=== PATIENT | male | born 1960 | race Caucasian/White ===

== ENCOUNTER 2017-06-28 11:39 | Day surgery (SDC) | payer OTHER ==
[~2017-06-28] VITALS: Ht 182.9 cm; Wt 123.5 kg
[~2017-06-28 11:39] MED LIST: AMPDEX10 PO; ARIP10 PO; ASCO500 PO; ASPI81CH PO; ASPI81EC PO; Amphetamine Sal30 MG PO; Ativan1 MG PO; CEPH500 PO; CLON.5 PO; CLON1 PO; Calcium 600 +1 EAC1 PO; DULO60; FENO160 PO; FENO48 PO; FETZIMA120 MG PO; FLUV50; FURO20 PO; FURO40 PO; GABA300 PO; HYDCHL25 PO; HYDR1TAB94 PO; IBUP800 PO; KETO30I; LAMO100 PO; LAMO5; LATUDA60 MG PO; LOSA50; LOSARTAN-HCTZ1 EAC2 PO; LOVA40 PO; Lithium Carbon600 MG PO; METF500 PO; MULVIT PO; MULVITMIND PO; NAPR500 PO; OLME20 PO; OLME5TAB; OMEP20ER PO; OXYACE5T PO; POTA10T PO; POTCHL20ER PO; PREG150 PO; Percocet 5-3251 EACH PO; Protonix40 MG PO; QUETIAPINE FUMA50 MG PO; SITA25T2 PO; TAMS.4ER PO; TESTOSTERONE; TOPI100 PO; TRAM50 PO; VITAMIN D12 PO; VITAMIN D35000 UNIT PO; Venlafaxine HC100 MG PO
[2018-05-10] MEDS ORDERED: SPIR25 PO (08:29)
[2018-05-10] MEDS ORDERED: AMPDEX30CR PO (08:29)
[2018-06-17] MEDS ORDERED: LOSARTAN-HCTZ1 EAC2 PO (11:46)
[2018-06-17] MEDS ORDERED: AMLO5 PO (11:47)
[2018-06-17] MEDS ORDERED: Aspirin EC81 MG PO (11:47)
[2018-06-17] MEDS ORDERED: VENL150ER PO (11:47)
[2018-06-17] MEDS ORDERED: LOVA40 PO (11:48)
[2018-06-17] MEDS ORDERED: AMPDEX30CR PO (11:48)
[2018-06-17] MEDS ORDERED: POTA10T PO (11:48)
[2018-06-17] MEDS ORDERED: Lasix40 MG PO (11:48)
[2018-06-17] MEDS ORDERED: PREG150 PO (11:48)
[2018-06-17] MEDS ORDERED: TRAM50 PO (11:49)
[2018-06-17] MEDS ORDERED: Metformin HCl500 MG PO (11:49)
[2018-06-17] MEDS ORDERED: Flonase 0.05% N16 GM (11:50)
[2018-06-17] MEDS ORDERED: KETOROLAC TROMET5 M1 (11:50)
[2018-06-17] MEDS ORDERED: TESTONE CI200 MG/1 M IM (11:50)
[2018-06-17] MEDS ORDERED: LATUDA80 MG PO (11:51)
[2018-06-17] MEDS ORDERED: ALBU90OI INH (11:51)
[2018-06-17] MEDS ORDERED: TAMS.4ER PO (11:51)
[2018-06-17] MEDS ORDERED: SPIR25 PO (11:51)
[2018-06-17] MEDS ORDERED: VITAMIN D35000 UNI1 PO (11:51)
== END 2017-06-28 15:00 | disposition home or self-care (01) ==
LOC: ORSCSDS 11:39
PROVIDERS: Urology
PROC: 0VB70ZZ Excision of Left Tunica Vaginalis, Open Approach (ICD-10-PCS; principal; 2017-06-28 13:30)
DX: N43.3 Hydrocele, unspecified (principal); N43.41 Spermatocele of epididymis, single; E11.9 Type 2 diabetes mellitus without complications; E78.5 Hyperlipidemia, unspecified; F41.8 Other specified anxiety disorders; J45.909 Unspecified asthma, uncomplicated; I10 Essential (primary) hypertension; K21.9 Gastro-esophageal reflux disease without esophagitis; E66.01 Morbid (severe) obesity due to excess calories; Z68.39 Body mass index [BMI] 39.0-39.9, adult; Z79.82 Long term (current) use of aspirin; Z79.84 Long term (current) use of oral hypoglycemic drugs; Z79.899 Other long term (current) drug therapy
CPT/HCPCS: 82947; J0690; J1100; J2250; J2405; J3010; J7120

== ENCOUNTER 2018-06-27 08:15 | Day surgery (SDC) | payer OTHER ==
[~2018-06-27] VITALS: Ht 177.8 cm; Wt 126.3 kg
[~2018-06-27 08:15] MED LIST changes: +ALBU90OI INH; +AMLO5 PO; +AMPDEX30CR PO; +Aspirin EC81 MG PO; +Flonase 0.05% N16 GM; +KETOROLAC TROMET5 M1; +LATUDA80 MG PO; +Lasix40 MG PO; +Metformin HCl500 MG PO; +SPIR25 PO; +TESTONE CI200 MG/1 M IM; +VENL150ER PO; +VITAMIN D35000 UNI1 PO
--- NOTE | 2018-06-27 10:33 | NUR ---
06/27/18 1033 Louise Andres PT NOTIFIED OF SURGEON'S PREVIOUS CASE RUNNING LONGER THAN EXPECTED. HOUR DELAY PREDICTED; PT VERY UNDERSTANDING.
== END 2018-06-27 12:01 | disposition home or self-care (01) ==
LOC: ORSCSDS 08:15
PROVIDERS: Orthopaedic Surgery
PROC: 01N54ZZ Release Median Nerve, Percutaneous Endoscopic Approach (ICD-10-PCS; principal; 2018-06-27 10:00)
DX: G56.02 Carpal tunnel syndrome, left upper limb (principal); E11.42 Type 2 diabetes mellitus with diabetic polyneuropathy; E11.610 Type 2 diabetes mellitus with diabetic neuropathic arthropathy; E78.5 Hyperlipidemia, unspecified; F41.8 Other specified anxiety disorders; F31.9 Bipolar disorder, unspecified; G47.33 Obstructive sleep apnea (adult) (pediatric); I10 Essential (primary) hypertension; E66.01 Morbid (severe) obesity due to excess calories; Z68.41 Body mass index [BMI] 40.0-44.9, adult; Z79.82 Long term (current) use of aspirin; Z79.84 Long term (current) use of oral hypoglycemic drugs; Z79.899 Other long term (current) drug therapy
CPT/HCPCS: 82947; J0690; J2250; J3010; J7120

== ENCOUNTER 2018-11-04 05:42 | Day surgery (SDC) | payer OTHER ==
[~2018-11-04] VITALS: Ht 175.3 cm; Wt 125.0 kg
--- NOTE | 2018-11-04 09:35 | NUR ---
REPORT TO MK MARRERO TO ASSUME CARE OF PT AT THIS TIME. VSS. NADN. SITE REMAINS CLEAR.
--- NOTE | 2018-11-04 13:10 | NUR ---
DR GOMEZ IN ROOM DISCUSSING PLAN OF CARE. VSS. CARLIE. Toma RADIAL SITE CLEAR
--- NOTE | 2018-11-04 14:20 | NUR ---
PT TR BAND REMOVED. DOT DRESSING APPLIED. NO BLEEDING OR HEMATOMA NOTED. VSS. NADN. PT IV DC'D. CATH INTACT. PRESSURE DSG APPLIED. PT AND S/O VERBALIZES UNDERSTANDING WRITTEN AND VERBAL ORDERS. DENIES QUESTIONS. PT DC TO HOME VIA WC.
--- NOTE | 2018-11-04 16:05 | NUR ---
PT DRESSED, IV DC'D INTACT, TR BAND REMOVED, DRESSING/WRIST SPLINT/ARM SLING PLACED, PT AMB OUT W DRIVING HOME
== END 2018-11-04 14:20 | disposition home or self-care (01) ==
LOC: MHTC 05:42
DX: R94.39 Abnormal result of other cardiovascular function study (principal); R07.9 Chest pain, unspecified; I77.89 Other specified disorders of arteries and arterioles; I12.9 Hypertensive chronic kidney disease with stage 1 through stage 4 chronic kidney disease, or unspecified chronic kidney disease; E11.22 Type 2 diabetes mellitus with diabetic chronic kidney disease; N18.9 Chronic kidney disease, unspecified; J45.909 Unspecified asthma, uncomplicated; K21.9 Gastro-esophageal reflux disease without esophagitis; E78.5 Hyperlipidemia, unspecified; G47.33 Obstructive sleep apnea (adult) (pediatric); E66.01 Morbid (severe) obesity due to excess calories; F31.9 Bipolar disorder, unspecified; Z99.89 Dependence on other enabling machines and devices; Z79.899 Other long term (current) drug therapy; Z79.82 Long term (current) use of aspirin; Z79.84 Long term (current) use of oral hypoglycemic drugs; Z88.8 Allergy status to other drugs, medicaments and biological substances
CPT/HCPCS: 83735; 93005; 93010; 93458; 99152; 99153; C1769; C1894; J0690; J1644; J2250; J3010; J7030; Q9967

== ENCOUNTER 2018-11-19 20:32 | Emergency (ER) | payer OTHER ==
[~2018-11-19] VITALS: Ht 177.8 cm; Wt 124.7 kg
[2018-11-19] MEDS ORDERED: CLOP75 PO (20:53)
[2018-11-19 21:09] LABS: BASOPHILS ABSOLUTE AUTO 0.02 K/mm3 (0.00-0.23); BASOPHILS PERCENT AUTO 0 % (0-2); EOSINOPHILS ABSOLUTE AUTO 0.17 K/mm3 (0.00-0.68); EOSINOPHILS PERCENT AUTO 3 % (0-6); Hematocrit 37.8 % (37.0-53.0); Hemoglobin 12.7 g/dL (13.5-17.5); IMMATURE GRAN ABSOLUTE AUTO 0.02 K/mm3 (0.00-0.10); IMMATURE GRAN PERCENT AUTO 0 % (0-1); LYMPHOCYTES ABSOLUTE AUTO 1.33 K/mm3 (0.84-5.20); LYMPHOCYTES PERCENT AUTO 24 % (21-46); MONOCYTES ABSOLUTE AUTO 0.51 K/mm3 (0.16-1.47); MONOCYTES PERCENT AUTO 9 % (4-13); Mean Corpuscular HGB 31.5 pg (26.0-34.0); Mean Corpuscular HGB Conc 33.6 g/dL (31.5-36.5); Mean Corpuscular Volume 94 fL (80-100); Mean Platelet Volume 9.8 fL (9.1-12.4); NEUTROPHILS ABSOLUTE AUTO 3.61 K/mm3 (1.96-9.15); NEUTROPHILS PERCENT AUTO 64 % (41-73); Platelet Count 188 K/mm3 (150-400); RDW Coefficient Variation 13.5 % (11.7-14.2); RDW Standard Deviation 46.6 fL (35.1-46.3); Red Blood Cell Count 4.03 M/mm3 (4.30-5.90); White Blood Cell Count 5.66 K/mm3 (4.00-11.30)
[2018-11-19 21:25] LABS: Alanine Aminotransfer (ALT/SGP 28 U/L (12-78); Albumin, Blood 3.8 g/dL (3.4-5.0); Albumin/Globulin Ratio 1.1 (0.8-1.8); Alk Phos 76 U/L (50-136); Anion Gap 9 mmol/L (6-16); Aspartate Aminotrans (AST/SGOT 14 U/L (12-37); Bilirubin, Total 0.3 mg/dL (0.1-1.0); Blood Urea Nitrogen 33 mg/dL (8-24); Bun/Creatinine Ratio 20.1 (12.0-20.0); CO2, Blood 28 mmol/L (21-32); Chloride, Blood 103 mmol/L (98-108); Creatinine, Blood 1.64 mg/dL (0.60-1.20); Globulin, Blood 3.4 g/dL (2.2-4.0); Glomerular Filtration Rate 46 (60-); Glucose, Blood 132 mg/dL (70-99); Potassium, Blood 3.5 mmol/L (3.5-5.5); Sodium, Blood 140 mmol/L (136-145); Total Protein, Blood 7.2 g/dL (6.4-8.2); Troponin I <0.015 ng/mL (0.000-0.040)
== END 2018-11-19 23:20 | disposition home or self-care (01) ==
LOC: ER 20:32
PROVIDERS: Emergency Medicine
DX: R07.9 Chest pain, unspecified (principal); E11.22 Type 2 diabetes mellitus with diabetic chronic kidney disease; I12.9 Hypertensive chronic kidney disease with stage 1 through stage 4 chronic kidney disease, or unspecified chronic kidney disease; N18.9 Chronic kidney disease, unspecified; Z91.041 Radiographic dye allergy status; Z88.8 Allergy status to other drugs, medicaments and biological substances; Z88.1 Allergy status to other antibiotic agents; Z88.7 Allergy status to serum and vaccine; Z79.899 Other long term (current) drug therapy; Z79.82 Long term (current) use of aspirin; Z79.84 Long term (current) use of oral hypoglycemic drugs; I10 Essential (primary) hypertension; E11.9 Type 2 diabetes mellitus without complications; F32.9 Major depressive disorder, single episode, unspecified; E78.00 Pure hypercholesterolemia, unspecified
CPT/HCPCS: 71046; 80053; 82947; 83690; 83880; 84484; 85025; 85379; 93005; 93010; 99285-25

== ENCOUNTER → 2021-09-26 | Outpatient (CLI) | payer OTHER ==
[~2021-09-26] MED LIST changes: +ACET500 PO; +ALBU8HFA2 INH; +CARV25; +CLOP75 PO; +ESTRADIOL VALERATE 40 MG/ML; +FLUT.05NI; +Isosorbide Mono30 MG PO; +LATUDA40 M1 PO; +LORA2 PO; -Metformin HCl500 MG PO
== END | disposition home or self-care (01) ==
LOC: LAB SHORT 16:50
DX: R07.9 Chest pain, unspecified (principal)
CPT/HCPCS: 85379

== ENCOUNTER 2021-10-16 11:34 | Emergency (ER) | payer OTHER ==
[~2021-10-16] VITALS: Ht 177.8 cm; Wt 129.3 kg
[2021-10-16 12:46] LABS: BASOPHILS ABSOLUTE AUTO 0.03 K/mm3 (0.00-0.23); BASOPHILS PERCENT AUTO 0 % (0-2); EOSINOPHILS ABSOLUTE AUTO 0.21 K/mm3 (0.00-0.68); EOSINOPHILS PERCENT AUTO 2 % (0-6); Hemoglobin 12.7 g/dL (11.5-16.0); IMMATURE GRAN ABSOLUTE AUTO 0.09 K/mm3 (0.00-0.10); IMMATURE GRAN PERCENT AUTO 1 % (0-1); LYMPHOCYTES ABSOLUTE AUTO 1.44 K/mm3 (0.84-5.20); LYMPHOCYTES PERCENT AUTO 14 % (21-46); MONOCYTES ABSOLUTE AUTO 0.68 K/mm3 (0.16-1.47); MONOCYTES PERCENT AUTO 7 % (4-13); Mean Corpuscular HGB 32.6 pg (26.0-34.0); Mean Corpuscular HGB Conc 34.3 g/dL (31.5-36.5); Mean Corpuscular Volume 95 fL (80-100); Mean Platelet Volume 9.8 fL (9.1-12.4); NEUTROPHILS ABSOLUTE AUTO 7.65 K/mm3 (1.96-9.15); NEUTROPHILS PERCENT AUTO 76 % (41-73); Platelet Count 165 K/mm3 (150-400); RDW Coefficient Variation 13.3 % (11.7-14.2)
[2021-10-16 13:04] LABS: Albumin, Blood 3.7 g/dL (3.4-5.0); Albumin/Globulin Ratio 1.1 (0.8-1.8); Bilirubin, Total 0.4 mg/dL (0.1-1.0); Bun/Creatinine Ratio 12.9 (12.0-20.0); Calcium, Blood 9.5 mg/dL (8.5-10.1); Creatinine, Blood 1.16 mg/dL (0.40-1.00); Globulin, Blood 3.3 g/dL (2.2-4.0); Potassium, Blood 4.1 mmol/L (3.5-5.5)
[2021-10-16] MEDS ORDERED: LOSA25 PO ×2 (15:03→15:06)
[2021-10-16] MEDS ORDERED: ALFUZOSIN HCL10 MG PO (15:10)
[2021-10-16] MEDS ORDERED: PROMETRIUM PO (15:14)
[2021-10-16] MEDS ORDERED: PREGABALIN PO (15:15)
[2021-10-16] MEDS ORDERED: MONT10T PO (15:16)
[2021-10-16] MEDS ORDERED: DESVENLAFAXINE100 M3 PO (15:17)
[2021-10-16] MEDS ORDERED: DESVENLAFAXINE50 M3 PO (15:17)
[2021-10-16] MEDS ORDERED: IRON18 MG PO (15:19)
== END 2021-10-16 15:58 | disposition home or self-care (01) ==
LOC: EDSEX 11:34 → ER 11:34
PROVIDERS: Student in an Organized Health Care Education/Training Program
DX: R55 Syncope and collapse (principal); E78.5 Hyperlipidemia, unspecified; I10 Essential (primary) hypertension; Z91.048 Other nonmedicinal substance allergy status; Z88.8 Allergy status to other drugs, medicaments and biological substances; Z88.1 Allergy status to other antibiotic agents; Z79.84 Long term (current) use of oral hypoglycemic drugs; Z79.82 Long term (current) use of aspirin; Z79.899 Other long term (current) drug therapy
CPT/HCPCS: 36415; 71045; 80053; 83880; 84484; 85025; 93005; 93010; 99284-25

== ENCOUNTER → 2022-12-12 | Outpatient (CLI) | payer OTHER ==
[~2022-12-12] MED LIST changes: +ALFUZOSIN HCL10 MG PO; +DESVENLAFAXINE100 M3 PO; +DESVENLAFAXINE50 M3 PO; +IRON18 MG PO; +LOSA25 PO; +MONT10T PO; +PREGABALIN PO; +PROMETRIUM PO
[2022-12-12 18:30] LABS: Bun/Creatinine Ratio 19.7 (12.0-20.0); Creatinine, Blood 1.83 mg/dL (0.40-1.00); Potassium, Blood 4.3 mmol/L (3.5-5.5)
== END | disposition home or self-care (01) ==
LOC: LAB 16:20 → LAB SHORT 16:20
PROVIDERS: Family Medicine
DX: M79.89 Other specified soft tissue disorders (principal)
CPT/HCPCS: 80048

== ENCOUNTER → 2023-02-27 | Outpatient (CLI) | payer OTHER | LOC: LAB 16:20 → LAB SHORT 16:20 | DX: E11.9 Type 2 diabetes mellitus without complications (principal) | CPT/HCPCS: 83036 ==

== ENCOUNTER → 2023-07-18 | Outpatient (CLI) | payer OTHER ==
[2023-07-18 17:09] LABS: BASOPHILS ABSOLUTE AUTO 0.02 K/mm3 (0.00-0.23); BASOPHILS PERCENT AUTO 0 % (0-2); EOSINOPHILS ABSOLUTE AUTO 0.15 K/mm3 (0.00-0.68); EOSINOPHILS PERCENT AUTO 1 % (0-6); Hematocrit 33.3 % (33.0-51.0); Hemoglobin 11.6 g/dL (11.5-16.0); IMMATURE GRAN ABSOLUTE AUTO 0.14 K/mm3 (0.00-0.10); IMMATURE GRAN PERCENT AUTO 1 % (0-1); LYMPHOCYTES ABSOLUTE AUTO 1.07 K/mm3 (0.84-5.20); LYMPHOCYTES PERCENT AUTO 9 % (21-46); MONOCYTES ABSOLUTE AUTO 0.85 K/mm3 (0.16-1.47); MONOCYTES PERCENT AUTO 7 % (4-13); Mean Corpuscular HGB 33.2 pg (26.0-34.0); Mean Corpuscular HGB Conc 34.8 g/dL (31.5-36.5); Mean Corpuscular Volume 95 fL (80-100); Mean Platelet Volume 9.4 fL (9.1-12.4); NEUTROPHILS ABSOLUTE AUTO 9.74 K/mm3 (1.96-9.15); NEUTROPHILS PERCENT AUTO 81 % (41-73); Platelet Count 199 K/mm3 (150-400); RDW Coefficient Variation 14.3 % (11.7-14.2); RDW Standard Deviation 49.4 fL (35.1-46.3); Red Blood Cell Count 3.49 M/mm3 (3.80-5.20); White Blood Cell Count 11.97 K/mm3 (4.00-11.30)
[2023-07-18 17:17] LABS: Albumin, Blood 3.8 g/dL (3.4-5.0); Albumin/Globulin Ratio 1.1 (0.8-1.8); Bilirubin, Total 0.3 mg/dL (0.1-1.0); Bun/Creatinine Ratio 14.3 (12.0-20.0); Calcium, Blood 7.6 mg/dL (8.5-10.1); Creatinine, Blood 1.96 mg/dL (0.40-1.00); Globulin, Blood 3.5 g/dL (2.2-4.0); Potassium, Blood 3.5 mmol/L (3.5-5.5); Total Protein, Blood 7.3 g/dL (6.4-8.2)
== END | disposition home or self-care (01) ==
LOC: LAB SHORT 17:03 → LAB 17:03
PROVIDERS: Physician Assistant Surgical
DX: R11.2 Nausea with vomiting, unspecified (principal); R19.7 Diarrhea, unspecified
CPT/HCPCS: 80053; 85025

== ENCOUNTER → 2023-07-20 | Outpatient (CLI) | payer OTHER ==
[2023-07-20 11:59] LABS: BASOPHILS ABSOLUTE AUTO 0.02 K/mm3 (0.00-0.23); BASOPHILS PERCENT AUTO 0 % (0-2); EOSINOPHILS PERCENT AUTO 2 % (0-6); Hemoglobin 10.3 g/dL (11.5-16.0); IMMATURE GRAN ABSOLUTE AUTO 0.08 K/mm3 (0.00-0.10); IMMATURE GRAN PERCENT AUTO 1 % (0-1); LYMPHOCYTES ABSOLUTE AUTO 0.96 K/mm3 (0.84-5.20); LYMPHOCYTES PERCENT AUTO 11 % (21-46); MONOCYTES ABSOLUTE AUTO 0.71 K/mm3 (0.16-1.47); MONOCYTES PERCENT AUTO 8 % (4-13); Mean Corpuscular HGB 33.1 pg (26.0-34.0); Mean Corpuscular HGB Conc 34.3 g/dL (31.5-36.5); Mean Corpuscular Volume 97 fL (80-100); Mean Platelet Volume 9.1 fL (9.1-12.4); NEUTROPHILS ABSOLUTE AUTO 7.04 K/mm3 (1.96-9.15); NEUTROPHILS PERCENT AUTO 78 % (41-73); Platelet Count 176 K/mm3 (150-400); RDW Coefficient Variation 14.2 % (11.7-14.2); RDW Standard Deviation 49.8 fL (35.1-46.3); Red Blood Cell Count 3.11 M/mm3 (3.80-5.20); White Blood Cell Count 9.01 K/mm3 (4.00-11.30)
[2023-07-20 12:03] LABS: Bun/Creatinine Ratio 9.4 (12.0-20.0); Creatinine, Blood 1.8 mg/dL (0.40-1.00); Potassium, Blood 3.5 mmol/L (3.5-5.5)
[2023-07-20 17:30] LABS: Adenovirus F 40/41 Not Detected (NOT DETECT); Astrovirus Not Detected (NOT DETECT); Campylobacter Sp Not Detected (NOT DETECT); Cryptosporidium Not Detected (NOT DETECT); Cyclospora Cayetanensis Not Detected (NOT DETECT); E. Coli O157 Not Detected (NOT DETECT); Entamoeba Histolytica Not Detected (NOT DETECT); Enteroaggregative E. coli-EAEC Not Detected (NOT DETECT); Enteropathogenic E. coli-EPEC Not Detected (NOT DETECT); Enterotoxigenic E. coli-ETEC Not Detected (NOT DETECT); Giardia Lamblia Not Detected (NOT DETECT); Norovirus GI/GII Not Detected (NOT DETECT); Plesiomonas Shigelloides Not Detected (NOT DETECT); Rotavirus A Not Detected (NOT DETECT); Salmonella Sp Not Detected (NOT DETECT); Sapovirus Detected (NOT DETECT); Shiga Toxin-prod E. coli-STEC Not Detected (NOT DETECT); Shigella/Enteroin E. coli-EIEC Not Detected (NOT DETECT); Vibrio Cholerae Not Detected (NOT DETECT); Vibrio Sp Not Detected (NOT DETECT); Yersinia Enterocolitica Not Detected (NOT DETECT)
== END | disposition home or self-care (01) ==
LOC: LAB 11:53 → LAB SHORT 11:53
PROVIDERS: Physician Assistant Surgical
DX: R19.7 Diarrhea, unspecified (principal); R11.2 Nausea with vomiting, unspecified
CPT/HCPCS: 80048; 85025; 87507

== ENCOUNTER → 2023-08-23 | Outpatient (CLI) | payer OTHER ==
[2023-08-23 15:03] LABS: Source, Urine Clean Catch
[2023-08-23 17:25] LABS: Appearance, Urine Clear (Clear); Bilirubin, Urine Neg (Neg); Blood, Urine Neg (Neg); Color, Urine Yellow (P-Yellow); Glucose Qualitative, Urine Neg (Neg); Ketones, Urine Neg (Neg); Leukocyte Esterase, Urine Neg (Neg); Nitrite, Urine Neg (Neg); Protein, Urine Neg (Neg); Specific Gravity, Urine 1.015 (1.003-1.022); Urobilinogen, Urine NORM (Normal)
[2023-08-23 20:42] LABS: Creatinine, Urine Random 81.5 mg/dL (27.00-270.00); Protein, Urine Random 12.2 mg/dL (0.0-11.9); Protein/Creat Ratio, Ur Random 0.1
== END | disposition home or self-care (01) ==
LOC: LAB SHORT 11:36 → LAB 11:36
PROVIDERS: Hospitalist
DX: I12.9 Hypertensive chronic kidney disease with stage 1 through stage 4 chronic kidney disease, or unspecified chronic kidney disease (principal); N18.32 Chronic kidney disease, stage 3b
CPT/HCPCS: 81003; 82570; 84156

== ENCOUNTER → 2024-01-04 | Outpatient (CLI) | payer OTHER ==
[~2024-01-04] MED LIST changes: +TRULICITY4.5 MG/0.5 SC
[2024-01-10 05:13] LABS: OVA AND PARASITE,FECAL INTERP Negative (Negative)
== END | disposition home or self-care (01) ==
LOC: LAB SHORT 08:02 → LAB 08:02 → LAB SHORT 01-07 08:02
PROVIDERS: Family Medicine
DX: K52.9 Noninfective gastroenteritis and colitis, unspecified (principal)
CPT/HCPCS: 87177; 87209

== ENCOUNTER → 2024-01-04 | Outpatient (CLI) | payer OTHER ==
[2024-01-04 14:34] LABS: Adenovirus F 40/41 Not Detected (NOT DETECT); Astrovirus Not Detected (NOT DETECT); Campylobacter Sp Not Detected (NOT DETECT); Cryptosporidium Not Detected (NOT DETECT); Cyclospora Cayetanensis Not Detected (NOT DETECT); E. Coli O157 Not Detected (NOT DETECT); Entamoeba Histolytica Not Detected (NOT DETECT); Enteroaggregative E. coli-EAEC Not Detected (NOT DETECT); Enteropathogenic E. coli-EPEC Not Detected (NOT DETECT); Enterotoxigenic E. coli-ETEC Not Detected (NOT DETECT); Giardia Lamblia Not Detected (NOT DETECT); Norovirus GI/GII Not Detected (NOT DETECT); Plesiomonas Shigelloides Not Detected (NOT DETECT); Rotavirus A Not Detected (NOT DETECT); Salmonella Sp Not Detected (NOT DETECT); Sapovirus Not Detected (NOT DETECT); Shiga Toxin-prod E. coli-STEC Not Detected (NOT DETECT); Shigella/Enteroin E. coli-EIEC Not Detected (NOT DETECT); Vibrio Cholerae Not Detected (NOT DETECT); Vibrio Sp Not Detected (NOT DETECT); Yersinia Enterocolitica Not Detected (NOT DETECT)
[2024-01-07 05:59] LABS: CALPROTECTIN,FECAL 193 ug/g (<=49); PANCREATIC ELASTASE,FECAL >800 ug/g (>=100)
== END | disposition home or self-care (01) ==
LOC: LAB 09:27 → LAB SHORT 09:27
PROVIDERS: Family Medicine
DX: K52.9 Noninfective gastroenteritis and colitis, unspecified (principal)
CPT/HCPCS: 82653; 83993; 87338; 87507

== ENCOUNTER → 2024-01-25 | Outpatient (CLI) | payer OTHER ==
[2024-01-31 09:57] LABS: OVA AND PARASITE,FECAL INTERP Negative (Negative)
== END ==
LOC: LAB 12:20 → LAB SHORT 12:20
PROVIDERS: Family Medicine
DX: K52.9 Noninfective gastroenteritis and colitis, unspecified (principal)
CPT/HCPCS: 87177; 87209

== ENCOUNTER 2024-04-08 08:45 | Day surgery (SDC) | payer OTHER ==
[~2024-04-08] VITALS: Ht 177.8 cm; Wt 116.3 kg
[~2024-04-08 08:45] MED LIST changes: +Balanced Salt Epinephrine Irrigation Solution 500 mL IR SCH; +Lidocaine HCl/Pf 1% 5 ML VIAL XX SCH; +Moxifloxacin HCL 0.5 MG/0.1 ML 0.4MLSYR LEFTEYE SCH; +NS 500 ML IV ONE; +PHENYLEPHRINE\\TROPICAMIDE\\TETRACAINE OPHTHALMIC DILATING SOLN LEFTEYE PRN; +Povidone-Iodine 450 DROP/30 ML Solution LEFTEYE SCH; +Povidone-Iodine 450 DROP/30 ML Solution ONE; +Tetracaine HCl/Pf 0.5% Opth Soln 4 ml ONE
[2024-04-08] MEDS ORDERED: FAMO20 PO (09:23)
[2024-04-08] MEDS ORDERED: MIDO5 (09:24)
[2024-04-08] MEDS ORDERED: ALLEGRA HIVES180 MG PO (09:24)
[2024-04-08] MEDS ORDERED: SOAANZ20 M3 PO (09:25)
[2024-04-08] MEDS ORDERED: TRAZ100 PO (09:25)
[2024-04-08] MEDS ORDERED: NS 500 ML IV ONE (09:36)
--- NOTE | 2024-04-08 09:36 | NUR ---
04/08/24 0936 Steven Hunt CALL LIGHT WITHIN REACH. TETRACINE IN AT 0923 AND PLEMARGARET IN AT 0924
[2024-04-08] MEDS ORDERED: Midazolam HCl 1MG / ML 2ML Vial ONE (09:44)
[2024-04-08] MEDS ORDERED: FentaNYL Citrate 50 MCG/ML 2 ML Injection ONE (09:44)
[2024-04-08 10:49] VITALS: BP 123/89
== END 2024-04-08 10:38 | disposition home or self-care (01) ==
LOC: ORSCSDS 08:45
PROVIDERS: Student in an Organized Health Care Education/Training Program
PROC: 08RK3JZ Replacement of Left Lens with Synthetic Substitute, Percutaneous Approach (ICD-10-PCS; principal; 2024-04-08 10:30)
DX: E11.36 Type 2 diabetes mellitus with diabetic cataract (principal); H25.812 Combined forms of age-related cataract, left eye; Z96.1 Presence of intraocular lens; E11.42 Type 2 diabetes mellitus with diabetic polyneuropathy; Z86.718 Personal history of other venous thrombosis and embolism; E11.22 Type 2 diabetes mellitus with diabetic chronic kidney disease; I12.9 Hypertensive chronic kidney disease with stage 1 through stage 4 chronic kidney disease, or unspecified chronic kidney disease; N18.30 Chronic kidney disease, stage 3 unspecified; J45.909 Unspecified asthma, uncomplicated; F31.9 Bipolar disorder, unspecified; E78.5 Hyperlipidemia, unspecified; G47.33 Obstructive sleep apnea (adult) (pediatric); I25.10 Atherosclerotic heart disease of native coronary artery without angina pectoris; E66.9 Obesity, unspecified; Z68.36 Body mass index [BMI] 36.0-36.9, adult; Z79.02 Long term (current) use of antithrombotics/antiplatelets; Z79.85 Long-term (current) use of injectable non-insulin antidiabetic drugs; Z79.899 Other long term (current) drug therapy
CPT/HCPCS: 82947; J2250; J3010; J7040; V2632

== ENCOUNTER 2024-05-12 08:59 | Day surgery (SDC) | payer OTHER ==
[~2024-05-12] VITALS: Ht 172.7 cm; Wt 115.4 kg
[2024-05-12] VITALS (16 sets, daily range): BP systolic 100–130; BP diastolic 54–98
[~2024-05-12 08:59] MED LIST changes: +ALFU10 PO; +ALLEGRA HIVES180 MG PO; +AZELASTINE137 MCG/01; -Balanced Salt Epinephrine Irrigation Solution 500 mL IR SCH; -CARV25; +CARV25 PO; +FAMO20 PO; +FERROUS SULFATE PO; +HYDHCL25 PO; -IRON18 MG PO; +KETO.5OPSO BOTHEYES; -Lidocaine HCl/Pf 1% 5 ML VIAL XX SCH; +MIDO5 PO; -Moxifloxacin HCL 0.5 MG/0.1 ML 0.4MLSYR LEFTEYE SCH; -NS 500 ML IV ONE; -PHENYLEPHRINE\\TROPICAMIDE\\TETRACAINE OPHTHALMIC DILATING SOLN LEFTEYE PRN; +POTA8 PO; +PREG25 PO; -Povidone-Iodine 450 DROP/30 ML Solution LEFTEYE SCH; -Povidone-Iodine 450 DROP/30 ML Solution ONE; +SOAANZ20 M3 PO; +TRAZ100 PO; -Tetracaine HCl/Pf 0.5% Opth Soln 4 ml ONE; +Zofran4 MG PO; +[UNRECOGNIZED DRUG - OTHER] BOTHEARS; +[UNRECOGNIZED DRUG - OTHER] SC
[2024-05-12] MEDS ORDERED: CeFAZolin Sodium 2,000 MG in NS 100 ML IV SCH ×2 (09:25→23:00)
[2024-05-12] MEDS ORDERED: Tranexamic Acid 100 ML IV SCH (09:25)
[2024-05-12] MEDS ORDERED: Lactated Ringer's 1,000 ML IV SCH ×2 (09:25→13:50)
[2024-05-12] MEDS ORDERED: Ropivacaine 0.5% HCl/Pf 123.125 MG,EPINEPHrine HCL 0.25 MG,Ketorolac Tromethamine 15 MG... INFIL SCH (09:25)
[2024-05-12] MEDS ORDERED: Chlorhexidine Mouth Care 15 ML UDC MT SCH (09:25)
[2024-05-12] MEDS ORDERED: Acetaminophen 500 MG Tab PO SCH ×2 (09:25→16:00)
[2024-05-12] MEDS ORDERED: OxyCODONE HCL 10 MG TABCR PO SCH (09:25)
[2024-05-12] MEDS ORDERED: CALC.25 PO (11:56)
[2024-05-12] MEDS ORDERED: PROP10 PO (11:57)
[2024-05-12] MEDS ORDERED: LOPERAMIDE2 M2 PO (11:57)
--- NOTE | 2024-05-12 11:58 | NUR ---
SUMMARY OF DAY SURGERY ADMISSION: 944-PATIENT TRANSFERED TO CONSULT ROOM VIA W/C ACCOMPANIED BY SPOUSE AND [id number] WHERE MEDICATIONS AND ALLERGIES RECONCILED. A ROOM BECAME AVAILABLE ON SURGICAL FLOOR ROOM 221 UNDER THE CARE OF THIS DAY SURGERY NURSE. PATIENT TRANSFERED THERE VIA W/C AT 1000 AND THIS RN RESUMED CARE. CALL LIGHT PLACED IN REACH AND FAMILY INVITED PER PATIENT REQUEST. PATIENT AGREES TO CALL NURSE IF ASSISTANCE IS NEEDED. NURSE LEFT BEDSIDE AT 1122. WILL TRANSFER TO DAY SURGERY WHEN CLOSER TO SURGERY TIME.
[2024-05-12] MEDS ORDERED: Ketorolac 0.5% Opth Soln BTL BOTHEYES PRN (13:35)
[2024-05-12] MEDS ORDERED: Propranolol HCL 20 MG TAB PO PRN (13:35)
[2024-05-12] MEDS ORDERED: Midodrine 5 MG Tab PO PRN (13:40)
[2024-05-12] MEDS ORDERED: Azelastine 0.1% Nasal Spray PRN (13:40)
[2024-05-12] MEDS ORDERED: Metoclopramide HCl 5MG / ML 2ML Vial IV PRN (13:45)
[2024-05-12] MEDS ORDERED: Ondansetron HCl 2 MG / ML 2ML Vial IV PRN (13:45)
[2024-05-12] MEDS ORDERED: Magnesium Hydroxide Conc 10 ML UDC PO PRN (13:45)
[2024-05-12] MEDS ORDERED: FLU VACC TS2024-25(6MOS UP)/PF 45 MCG/0.5 ML SYRINGE IM SCH (13:50)
[2024-05-12] MEDS ORDERED: Bisacodyl 10 MG Supp PR PRN (13:50)
[2024-05-12] MEDS ORDERED: OxyCODONE HCL 5 MG TAB PO PRN ×2 (13:50)
[2024-05-12] MEDS ORDERED: Promethazine HCl 25 MG Tab PO PRN (13:55)
[2024-05-12] MEDS ORDERED: HYDROmorphone HCl/Pf 1MG SYR IV PRN (13:55)
[2024-05-12] MEDS ORDERED: DiphenhydrAMINE HCL 25 MG Cap PO PRN (13:55)
[2024-05-12] MEDS ORDERED: Albuterol HFA200 ACT/6.7 GM INH INH PRN (14:00)
[2024-05-12] MEDS ORDERED: Ketorolac Tromethamine 15mg Vial IV SCH (14:05)
--- NOTE | 2024-05-12 14:23 | NUR ---
JEAN APUL PEÑA RN ASSUMING CARE OF PATIENT. REPORT GIVEN.
[2024-05-12] MEDS ORDERED: Midazolam HCl 1MG / ML 2ML Vial ONE ×2 (14:47→15:24)
[2024-05-12] MEDS ORDERED: FentaNYL Citrate 50 MCG/ML 2 ML Injection ONE (14:47)
[2024-05-12] MEDS ORDERED: Phenylephrine HCl 100 MCG/ML-NS 10MLSYR (1MG/10ML) ONE (15:28)
[2024-05-12] MEDS ORDERED: Ondansetron HCl 2 MG / ML 2ML Vial ONE (16:15)
--- NOTE | 2024-05-12 17:05 | NUR ---
POST OP ARRIVAL VIA HOSPITAL BED. ASSESSMENT CHARTED. DENIES N/V OR PAIN. SNACKS & DRINKS GIVEN.
[2024-05-12] MEDS ORDERED: HyDROXyzine HCl 25 MG Tab PO SCH (18:00)
[2024-05-12] MEDS ORDERED: TraZODone HCl 100 MG Tab PO SCH (21:00)
[2024-05-12] MEDS ORDERED: Docusate Sodium 100 MG Cap PO SCH (21:00)
[2024-05-12] MEDS ORDERED: Spironolactone 50 MG Tab PO SCH (21:00)
[2024-05-12] MEDS ORDERED: Famotidine 20 MG Tab PO SCH (21:00)
[2024-05-12] MEDS ORDERED: Montelukast Sodium 10 MG Tab PO SCH (21:00)
[2024-05-12] MEDS ORDERED: Losartan Potassium 50 MG Tab PO SCH (21:00)
[2024-05-12] MEDS ORDERED: Torsemide 20 MG TAB PO SCH (21:00)
[2024-05-12] MEDS ORDERED: Pregabalin 25 MG Capsule PO SCH (21:00)
[2024-05-12] MEDS ORDERED: Carvedilol 25 MG Tab PO SCH (21:00)
[2024-05-12] MEDS ORDERED: Misc. Tablet PO SCH (21:00)
[2024-05-13 04:47] VITALS: BP 127/78
--- NOTE | 2024-05-13 05:10 | NUR ---
SHIFT SUMMARY POD1 R TKA. SENSATION AND CIRCULATION REMAINS INTACT. DRESSING IS C/D/I. VSS. PT SLEPT ON AND OFF T/O THE NIGHT. THE PATIENTS PAIN WAS INITIALLY DIFFICULT TO CONTROL W/SCHEDULED MEDICATION AND PRN'S, BUT THIS AM THE PT REPORTS OVERALL IMPROVED PAIN CONTROL. SHE TOLLERATED AMBULATING TO THE BATHROOM TO VOID ONCE, PT REPORTS SHE HAS LOW URINE OUTPUT AT BASELINE. TOLLERATING PO INTAKE W/O N/V. OVERALL, NO ACUTE EVENT NOTED. PLAN FOR PHYSICAL THERAPY TODAY AND D/C HOME.
[2024-05-13 05:28] LABS: BASOPHILS ABSOLUTE AUTO 0.06 K/mm3 (0.00-0.23); BASOPHILS PERCENT AUTO 0 % (0-2); EOSINOPHILS ABSOLUTE AUTO 0.36 K/mm3 (0.00-0.68); EOSINOPHILS PERCENT AUTO 3 % (0-6); Hematocrit 30.6 % (33.0-51.0); Hemoglobin 10.5 g/dL (11.5-16.0); IMMATURE GRAN PERCENT AUTO 1 % (0-1); LYMPHOCYTES ABSOLUTE AUTO 1.54 K/mm3 (0.84-5.20); LYMPHOCYTES PERCENT AUTO 11 % (21-46); MONOCYTES ABSOLUTE AUTO 1.44 K/mm3 (0.16-1.47); MONOCYTES PERCENT AUTO 10 % (4-13); Mean Corpuscular HGB Conc 34.3 g/dL (31.5-36.5); Mean Corpuscular Volume 96 fL (80-100); Mean Platelet Volume 9.4 fL (9.1-12.4); NEUTROPHILS ABSOLUTE AUTO 11.03 K/mm3 (1.96-9.15); NEUTROPHILS PERCENT AUTO 75 % (41-73); Platelet Count 171 K/mm3 (150-400); RDW Standard Deviation 49.1 fL (35.1-46.3); Red Blood Cell Count 3.18 M/mm3 (3.80-5.20); White Blood Cell Count 14.63 K/mm3 (4.00-11.30)
[2024-05-13 05:53] LABS: Bun/Creatinine Ratio 15.6 (12.0-20.0); Calcium, Blood 8.3 mg/dL (8.5-10.1); Creatinine, Blood 2.88 mg/dL (0.40-1.00); Potassium, Blood 4.3 mmol/L (3.5-5.5)
[2024-05-13 07:17] VITALS: BP 117/71
[2024-05-13] MEDS ORDERED: OXYC5 PO (08:12)
[2024-05-13] MEDS ORDERED: Isosorbide Mononitrate 60 MG TABCR PO SCH (09:00)
[2024-05-13] MEDS ORDERED: Venlafaxine HCl 75 MG CapCR PO SCH (09:00)
[2024-05-13] MEDS ORDERED: Clopidogrel Bisulfate 75 MG Tab PO SCH (09:00)
[2024-05-13] MEDS ORDERED: Potassium Chloride 10 Meq Tablet SA PO SCH (09:00)
[2024-05-13] MEDS ORDERED: Progesterone, Micronized 100 MG Cap PO SCH (09:00)
[2024-05-13] MEDS ORDERED: Losartan Potassium 25 MG Tab PO SCH (09:00)
[2024-05-13] MEDS ORDERED: Aspirin 81 MG Chew PO SCH (09:00)
--- NOTE | 2024-05-13 10:00 | NUR ---
DISCHARGE NOTE PT REMAINS A/OX4. NO ISSUES POST-OP. PT CHAVA PO INTAKE WELL. ADEQUATE PAIN CONTROL WITH PO MEDS. PT HAS VOIDED. CLEARED BY PHYSICAL THERAPY. DRSG ON R KNEE AQUACEL X2 C/D/I. PT SENT HOME WITH EXTRA DRSGS. PT TO F/U WITH ORTHO SCHEDULED. QUESTIONS ANSWERED. ESCORTED TO LOBBY VIA WC.
== END 2024-05-13 10:10 | disposition home or self-care (01) ==
LOC: ORSCMMR 08:59 → SURS 09:45 → ORSCMMR 13:00 → ORD 13:00 → ORSCMMR 05-13 10:10 → ORD 05-19 10:30
PROVIDERS: Orthopaedic Surgery
PROC: 0SRC0JA Replacement of Right Knee Joint with Synthetic Substitute, Uncemented, Open Approach (ICD-10-PCS; principal; 2024-05-12 13:30)
DX: M17.11 Unilateral primary osteoarthritis, right knee (principal); I25.10 Atherosclerotic heart disease of native coronary artery without angina pectoris; G47.33 Obstructive sleep apnea (adult) (pediatric); I12.9 Hypertensive chronic kidney disease with stage 1 through stage 4 chronic kidney disease, or unspecified chronic kidney disease; N18.4 Chronic kidney disease, stage 4 (severe); E66.9 Obesity, unspecified; Z68.38 Body mass index [BMI] 38.0-38.9, adult; Z79.02 Long term (current) use of antithrombotics/antiplatelets; Z79.899 Other long term (current) drug therapy
CPT/HCPCS: 36415; 73560-RT; 80048; 82947; 83735; 85025; 94660; 94762; 97110; 97116; 97162; A9270; C1713; C1776; J0171; J0690; J0735; J1171; J1885; J2250; J2371; J2405; J2795; J3010; J7120

== ENCOUNTER 2024-05-16 15:50 | Emergency (ER) | payer OTHER ==
[~2024-05-16] VITALS: Ht 172.7 cm; Wt 115.7 kg
[~2024-05-16 15:50] MED LIST changes: +CALC.25 PO; +LOPERAMIDE2 M2 PO; +OXYC5 PO; +PROP10 PO
[2024-05-16 16:21] LABS: BASOPHILS ABSOLUTE AUTO 0.03 K/mm3 (0.00-0.23); BASOPHILS PERCENT AUTO 0 % (0-2); EOSINOPHILS ABSOLUTE AUTO 0.27 K/mm3 (0.00-0.68); EOSINOPHILS PERCENT AUTO 3 % (0-6); Hematocrit 25.3 % (33.0-51.0); Hemoglobin 8.6 g/dL (11.5-16.0); IMMATURE GRAN ABSOLUTE AUTO 0.16 K/mm3 (0.00-0.10); IMMATURE GRAN PERCENT AUTO 2 % (0-1); LYMPHOCYTES ABSOLUTE AUTO 0.98 K/mm3 (0.84-5.20); LYMPHOCYTES PERCENT AUTO 9 % (21-46); MONOCYTES ABSOLUTE AUTO 1.01 K/mm3 (0.16-1.47); MONOCYTES PERCENT AUTO 9 % (4-13); Mean Corpuscular HGB 32.1 pg (26.0-34.0); Mean Corpuscular Volume 94 fL (80-100); Mean Platelet Volume 9.2 fL (9.1-12.4); NEUTROPHILS ABSOLUTE AUTO 8.39 K/mm3 (1.96-9.15); NEUTROPHILS PERCENT AUTO 77 % (41-73); Platelet Count 199 K/mm3 (150-400); RDW Coefficient Variation 13.7 % (11.7-14.2); Red Blood Cell Count 2.68 M/mm3 (3.80-5.20); White Blood Cell Count 10.84 K/mm3 (4.00-11.30)
[2024-05-16 16:33] LABS: Albumin/Globulin Ratio 0.8 (0.8-1.8); Bilirubin, Total 0.4 mg/dL (0.1-1.0); Bun/Creatinine Ratio 17.1 (12.0-20.0); Calcium, Blood 8.3 mg/dL (8.5-10.1); Creatinine, Blood 2.51 mg/dL (0.40-1.00); Globulin, Blood 3.7 g/dL (2.2-4.0); Potassium, Blood 3.8 mmol/L (3.5-5.5); Total Protein, Blood 6.7 g/dL (6.4-8.2)
[2024-05-16 18:30] VITALS: BP 121/73
[2024-05-16] MEDS ORDERED: Mag Hydrox/AL Hydrox/Simeth 30 ML UDC PO ONE (18:30)
[2024-05-16] MEDS ORDERED: Lidocaine 2% Viscous Soln 15 ML UDC PO ONE (18:30)
== END 2024-05-16 18:45 | disposition home or self-care (01) ==
LOC: ER 15:50
PROVIDERS: Emergency Medicine
DX: R07.2 Precordial pain (principal); I12.9 Hypertensive chronic kidney disease with stage 1 through stage 4 chronic kidney disease, or unspecified chronic kidney disease; N18.9 Chronic kidney disease, unspecified; K21.9 Gastro-esophageal reflux disease without esophagitis; J45.909 Unspecified asthma, uncomplicated; E78.5 Hyperlipidemia, unspecified; Z79.02 Long term (current) use of antithrombotics/antiplatelets; Z79.899 Other long term (current) drug therapy; Z91.041 Radiographic dye allergy status; Z88.1 Allergy status to other antibiotic agents; Z88.8 Allergy status to other drugs, medicaments and biological substances
CPT/HCPCS: 71046; 80053; 84484; 85025; 85379; 93005; 93010; 99285-25; A9270

== ENCOUNTER 2024-07-31 07:28 | Day surgery (SDC) | payer OTHER ==
[~2024-07-31] VITALS: Ht 177.8 cm; Wt 115.0 kg
[~2024-07-31 07:28] MED LIST changes: +Lactated Ringer's 1,000 ML IV ONE
[2024-07-31] MEDS ORDERED: Lactated Ringer's 1,000 ML IV ONE (08:23)
[2024-07-31] MEDS ORDERED: propofoL 50 ML IV ONE (08:47)
[2024-07-31 09:55] VITALS: BP 139/92
== END 2024-07-31 09:45 | disposition home or self-care (01) ==
LOC: ORSCSDS 07:28
PROVIDERS: Specialist
PROC: 0DB58ZX Excision of Esophagus, Via Natural or Artificial Opening Endoscopic, Diagnostic (ICD-10-PCS; principal; 2024-07-31 09:00)
PROC: 0DB78ZX Excision of Stomach, Pylorus, Via Natural or Artificial Opening Endoscopic, Diagnostic (ICD-10-PCS; principal; 2024-07-31 09:00)
DX: R11.0 Nausea (principal); R19.7 Diarrhea, unspecified; K21.9 Gastro-esophageal reflux disease without esophagitis; K29.70 Gastritis, unspecified, without bleeding; E11.9 Type 2 diabetes mellitus without complications; G47.33 Obstructive sleep apnea (adult) (pediatric); I10 Essential (primary) hypertension; I50.9 Heart failure, unspecified; J45.909 Unspecified asthma, uncomplicated; Z86.718 Personal history of other venous thrombosis and embolism; Z79.01 Long term (current) use of anticoagulants; E66.9 Obesity, unspecified; Z68.36 Body mass index [BMI] 36.0-36.9, adult; Z79.899 Other long term (current) drug therapy; Z85.528 Personal history of other malignant neoplasm of kidney; Z79.02 Long term (current) use of antithrombotics/antiplatelets
CPT/HCPCS: 82947; 88305; J2704; J7120

== ENCOUNTER → 2024-10-03 | Outpatient (CLI) | payer OTHER ==
[~2024-10-03] MED LIST changes: -Lactated Ringer's 1,000 ML IV ONE
[2024-10-08 16:49] LABS: PANCREATIC ELASTASE,FECAL >800 ug/g (>=100)
== END ==
LOC: LAB 12:46 → LAB SHORT 12:46
PROVIDERS: Physician Assistant Medical
DX: R19.7 Diarrhea, unspecified (principal)
CPT/HCPCS: 82653

== ENCOUNTER 2024-12-05 10:24 | Day surgery (SDC) | payer OTHER ==
[~2024-12-05] VITALS: Ht 177.8 cm; Wt 119.5 kg
[~2024-12-05 10:24] MED LIST changes: +Lactated Ringer's 1,000 ML IV ONE
[2024-12-05] MEDS ORDERED: Lidocaine HCl/Pf 1% 5 ML VIAL ONE (10:59)
[2024-12-05] MEDS ORDERED: ALLEGRA ALLERG180 MG (11:00)
[2024-12-05] MEDS ORDERED: ALLO100 (11:00)
[2024-12-05] MEDS ORDERED: FLUO60T (11:01)
[2024-12-05] MEDS ORDERED: Triamcinolone A15 G3 (11:02)
[2024-12-05] MEDS ORDERED: Lactated Ringer's 1,000 ML IV ONE (11:46)
[2024-12-05] MEDS ORDERED: Lidocaine HCl 4% 5 ML SDA ONE (11:59)
[2024-12-05] MEDS ORDERED: propofoL 50 ML IV ONE (12:07)
[2024-12-05 12:59] VITALS: BP 142/83
== END 2024-12-05 13:03 | disposition home or self-care (01) ==
LOC: ORSCSDS 10:24
PROVIDERS: Internal Medicine Gastroenterology
PROC: 0DB58ZX Excision of Esophagus, Via Natural or Artificial Opening Endoscopic, Diagnostic (ICD-10-PCS; principal; 2024-12-05 12:00)
DX: K21.00 Gastro-esophageal reflux disease with esophagitis, without bleeding (principal); R13.10 Dysphagia, unspecified; E11.9 Type 2 diabetes mellitus without complications; G47.33 Obstructive sleep apnea (adult) (pediatric); E11.22 Type 2 diabetes mellitus with diabetic chronic kidney disease; N18.31 Chronic kidney disease, stage 3a; Z87.890 Personal history of sex reassignment; E78.5 Hyperlipidemia, unspecified; J45.909 Unspecified asthma, uncomplicated; E66.01 Morbid (severe) obesity due to excess calories; Z68.37 Body mass index [BMI] 37.0-37.9, adult; Z86.718 Personal history of other venous thrombosis and embolism; F32.9 Major depressive disorder, single episode, unspecified; Z79.85 Long-term (current) use of injectable non-insulin antidiabetic drugs; Z85.53 Personal history of malignant neoplasm of renal pelvis; Z79.02 Long term (current) use of antithrombotics/antiplatelets; Z79.899 Other long term (current) drug therapy
CPT/HCPCS: 82947; 88305; J2003; J2704; J7120